=== PATIENT | male | born 1935 | race Caucasian/White ===

== ENCOUNTER 2017-12-21 05:31 | Day surgery (SDC) | payer OTHER ==
[~2017-12-21] VITALS: Ht 180.3 cm; Wt 90.7 kg
[~2017-12-21 05:31] MED LIST: AMLODIPINE BESY10 MG PO; ASPIR-LOW81 MG PO; ATORVASTATIN CA40 MG PO; AZILECT1 MG PO; CIPRO500 MG PO; COQ-10100 MG PO; DULCOLAX5 MG PO; FUROSEMIDE20 MG PO; METAMUCIL POWD822 G1 PO; METOPROLOL TART25 MG PO; MYRBETRIQ25 MG PO; ROPINIROLE HCL1 MG PO; VITAMIN B-6100 MG PO; VITAMIN D31000 UNIT PO
[2017-12-21 06:51] VITALS: BP 138/67
[2017-12-21] MEDS ORDERED: NORCO 5/3251 TABLET PO (08:12)
[2017-12-21 09:07] VITALS: BP 137/64
[2017-12-21 09:40] VITALS: BP 143/67
== END 2017-12-21 09:40 | disposition home or self-care (01) ==
LOC: SDC 05:31
PROC: 0JB10ZZ Excision of Face Subcutaneous Tissue and Fascia, Open Approach (ICD-10-PCS; principal; 2017-12-21)
DX: D17.0 Benign lipomatous neoplasm of skin and subcutaneous tissue of head, face and neck (principal); I10 Essential (primary) hypertension; E78.5 Hyperlipidemia, unspecified; G20 Parkinson's disease; I71.4 Abdominal aortic aneurysm, without rupture; N40.0 Benign prostatic hyperplasia without lower urinary tract symptoms; Z79.82 Long term (current) use of aspirin
CPT/HCPCS: 88304; J0690; J1100; J2405; J3010